=== PATIENT | male | born 1990 | race Two or more races ===

== ENCOUNTER 2016-04-14 13:10 | Emergency (ER) | payer OTHER ==
[~2016-04-14] VITALS: Ht 182.9 cm; Wt 117.9 kg
[~2016-04-14 13:10] MED LIST: IBUPROFEN600 MG ORAL
--- NOTE | 2016-04-14 13:29 | Emergency Room Report ---
History of Present Illness General Chief Complaint: Laceration Source: Patient Present Illness HPI The patient is a 25-year-old male presenting for right thumb laceration which he sustained at work this afternoon. The patient states that he was fixing a paper towel dispenser when his thumb became caught within the metal. The patient noticed pain and bleeding. The pain is described as a 5/10 dull ache it does not radiate. The patient denies numbness or tingling of the extremity. Patient denies prior injury to this area. The patient states that his last tetanus shot was within 10 years. Allergies: Coded Allergies: No Known Allergies (Unverified , 01/31/16) Patient History Past Medical History: see triage record Pertinent Family History: none Reviewed Nursing Documentation: PMH: Agreed, PSxH: Agreed Nursing Documentation-PMH Past Medical History: No Stated History Review of Systems All Other Systems: negative except mentioned in HPI Physical Exam Vital Signs Date Time Temp Pulse Resp B/P Pulse Ox O2 Delivery O2 Flow Rate FiO2 04/14/16 13:21 98.2 71 16 128/71 98 Room Air Sp02 EP Interpretation: reviewed, normal General Appearance: no apparent distress, alert, GCS 15, non-toxic Head: normocephalic, atraumatic Eyes: bilateral eye PERRL, bilateral eye normal inspection ENT: hearing grossly normal, normal pharynx, no angioedema, normal voice Neck: full range of motion, supple/symm/no masses Musculoskeletal: back normal, gait/station normal, normal range of motion, tender - over the laceration site Neurologic: alert, oriented x3, responsive, motor strength/tone normal, sensory intact, speech normal Psychiatric: judgement/insight normal, memory normal, mood/affect normal, no suicidal/homicidal ideation Skin: no rash, palpation normal, laceration - R thumb: 2cm linear laceration, does not extend fully through dermis. There is a < 1cm avulsion to medial thumb Procedures Laceration/Wound Repair Laceration/Wound Repair : Consent: Verbal Wound Location: upper extremity Wound's Depth, Shape: superficial Wound Length (cm): 2 Wound Explored: clean Irrigated w/ Saline (ccs): 200 Betadine Prep?: Yes Volume Anesthetic (ccs): 0 Wound Debrided: minimal Wound Repaired With: Dermabond Layer Closure?: No Sterile Dressing Applied?: Yes Splint Applied?: No Sling Applied?: No Patient Tolerated: Well Complications: None Medical Decision Making PA Attestation Dr. Lee is my supervising physician. Patient management was discussed with my supervising physician Diagnostic Impression: Primary Impression: Laceration of thumb ER Course The patient is a 25-year-old male presenting for right thumb laceration which he sustained at work this afternoon. Ddx considered include but not limited to fracture, tendon/ligament injury, avulsion, nerve damage PE: Vitals WNL. NAD R thumb: Full AROM. No edema. 2cm linear laceration to lateral proximal thumb, does not extend fully through dermis. There is a < 1cm avulsion to medial thumb The wound was cleaned thoroughly with normal saline and Betadine. Dermabond was applied to the larger laceration. Bacitracin was applied to the small avulsion. The wound was dressed with sterile dressing. The patient will follow up with primary care physician and workers compensation. ER precautions are given Last Vital Signs Date Time Temp Pulse Resp B/P Pulse Ox O2 Delivery O2 Flow Rate FiO2 04/14/16 13:21 98.2 71 16 128/71 98 Room Air Status: improved Disposition: HOME, SELF-CARE Condition: Improved Scripts Ibuprofen* (MOTRIN*) 600 Mg Tablet 600 MG ORAL Q6H Y for For Pain, #30 TAB Prov: GEN MAHMOOD 04/14/16 GEN MAHMOOD Apr 14, 2016 13:29
[2016-04-14] MEDS ORDERED: Bacitracin Oint UD TOPIC ONE (14:15)
[2016-04-14] MEDS ORDERED: IBUPROFEN600 MG ORAL (14:19)
[2016-04-14 14:34] VITALS: BP 128/71
[2016-04-14 14:38] VITALS: BP 128/71
== END 2016-04-14 14:38 | disposition home or self-care (01) ==
LOC: EMR 13:34
DX: S61.011A Laceration without foreign body of right thumb without damage to nail, initial encounter (principal); W45.8XXA Other foreign body or object entering through skin, initial encounter; Y92.89 Other specified places as the place of occurrence of the external cause; Y99.0 Civilian activity done for income or pay
CPT/HCPCS: 99284